=== PATIENT | female | born 1990 | race Hispanic/Latino ===

== ENCOUNTER 2016-03-08 15:11 | Day surgery (SDC) | payer OTHER ==
[~2016-03-08] VITALS: Ht 170.2 cm; Wt 136.5 kg
[~2016-03-08 15:11] MED LIST: CELEXA10 MG PO; CLEOCIN150 MG PO; CLEOCIN300 MG PO; DOCUSATE SODIU100 MG PO; ENDOCET 5-3251 EACH PO; GLUCOPHAGE500 MG PO; HIBICLENS118 ML TP; HYDROCODON-ACE1 EAC7 PO; KEFLEX500 MG PO; MINOCYCLINE HC100 MG PO; NAPROSYN500 MG PO; NORCO 5/3251 TABLET PO; OXAYDO5 MG PO; PERCOCET 5/31 TABLET PO; POLYETHYLENE GL17 GM PO; PROMETHAZINE HC25 M1 PO; Percocet 10/325,Endo PO; Percocet 5/325,Endoc PO; ULTRACET1 TABLET PO; VALIUM2 MG PO; ZOFRAN4 MG PO
[2016-03-08 15:53] LABS: HEMATOCRIT 26.9 % (36.0-46.0); MCV 72.1 FL (83-99)
[2016-03-08 16:30] VITALS: BP 109/66
[2016-03-08] MEDS ORDERED: NORCO 5/3251 TABLET PO (20:18)
[2016-03-08 20:47] LABS: POINT-OF-CARE USER ID 515036437
[2016-03-08 21:28] VITALS: BP 132/68
[2016-03-10 13:01] LABS: INTERNAL CONTROL VALID? YES
== END 2016-03-08 21:55 | disposition home or self-care (01) ==
LOC: SDC 15:11
PROVIDERS: Surgery
PROC: 0HBJXZZ Excision of Left Upper Leg Skin, External Approach (ICD-10-PCS; principal; 2016-03-08)
DX: L73.2 Hidradenitis suppurativa (principal)
CPT/HCPCS: 82948; 84703; 85014; 85018; 88305; J0690; J1170; J2250; J2405; J2765; J3010; S0020

== ENCOUNTER 2016-04-10 21:41 | Emergency (ER) | payer OTHER ==
[~2016-04-10] VITALS: Ht 170.2 cm; Wt 90.9 kg
[2016-04-11] MEDS ORDERED: VALIUM5 MG PO (00:37)
[2016-04-11] MEDS ORDERED: MOTRIN800 MG PO (00:37)
[2016-04-11] MEDS ORDERED: NORCO 7.5/321 TABLET PO (00:37)
[2016-04-11 00:57] VITALS: BP 107/61
== END 2016-04-11 00:58 | disposition home or self-care (01) ==
LOC: RME 21:41 → EME 21:41 → RME 04-11 00:58
DX: M54.42 Lumbago with sciatica, left side (principal)
CPT/HCPCS: 99281; 99284; J1885; J3010

== ENCOUNTER 2017-05-02 13:38 | Day surgery (SDC) | payer OTHER ==
[~2017-05-02] VITALS: Ht 177.8 cm; Wt 112.8 kg
[~2017-05-02 13:38] MED LIST changes: +METFORMIN HCL500 MG PO; +MINOCYCLINE HC100 M1 PO; +MOTRIN800 MG PO; +NORCO 7.5/321 TABLET PO; +OXYCODONE HCL5 MG PO; +VALIUM5 MG PO
[2017-05-02 14:23] VITALS: BP 140/81
[2017-05-02 14:24] LABS: CHLORIDE 97 MEQ/L (99-109); CREATININE 0.6 MG/DL (0.6-1.3); GFR ESTIMATE (CALCULATED) > 59 mL/min/; GLUCOSE 330 mg/dL (70-99); POTASSIUM 3.7 MEQ/L (3.7-5.4); SODIUM 136 MEQ/L (136-147); UREA NITROGEN (BUN) 7 mg/dL (9-23)
[2017-05-02] MEDS ORDERED: PERCOCET 5/31 TABLET PO (21:38)
[2017-05-02 23:20] VITALS: BP 133/73
[2017-05-03 03:46] VITALS: BP 120/57
[2017-05-03 07:44] VITALS: BP 114/59
== END 2017-05-03 11:09 | disposition home or self-care (01) ==
LOC: SDC 13:38 → ENRESERV 22:13 → 2SOUTH 22:14 → 2EAST 22:14 → 2SOUTH 22:14 → ENRESERV 22:37 → 2EAST 23:19
PROVIDERS: Surgery
DX: L73.2 Hidradenitis suppurativa (principal); L02.415 Cutaneous abscess of right lower limb; L02.416 Cutaneous abscess of left lower limb; L73.9 Follicular disorder, unspecified; R73.03 Prediabetes
CPT/HCPCS: 80048; 81025; 82948; 88305; 93005; G0378; J0690; J1170; J1885; J2250; J2405; J3010; J7120; S0020